=== PATIENT | female | born 1990 | race Two or more races ===

== ENCOUNTER 2016-11-25 06:09 | Observation (INO) | payer BC ==
[2016-11-19 14:58] LABS: HEMATOCRIT 41.6 % (36.0-48.0); HEMOGLOBIN 14.1 g/dL (12.0-16.0)
--- NOTE | ~2016-11-25 | OP ---
Record Of Operation [facility] [address] [place]. [address] NAME: MARGARITA AMTT : 89 STATUS : ADM Leoncio PAT#: [id number] AGE: 26 ADM/REG DATE : 11/25/16 MR#: [id number] REPORT SERV DATE: 11/25/16 DICTATED BY: MARIBEL MILLARD DATE: 11/25/16 REPORT STATUS : Draft TRANSCRIBED BY: MODL DATE: 11/25/16 DATE OF PROCEDURE: 11/25/2016 This was performed at [facility]. INDIGO MIXER: Nichelle Connolly. 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 She was referred by her lean six sigma black belt. Patient was evaluated clinically and radiographically and was noted to have a vertical maxillary excess and mandibular hypoplasia as well as bilateral inferior turbinate hypertrophy. It was determined that the patient would benefit from a maxillary [place] I impaction advancement with bilateral inferior turbinectomies and a bilateral sagittal split osteotomy advancement to be performed under general endotracheal tube anesthesia. The risks and benefits of the procedure were discussed with the patient. The risks included, but were not limited to, bleeding, infection, paresthesias, the possibility of future surgery. The patient expressed an understanding and wished to proceed with the planned procedure. PREOPERATIVE DIAGNOSES: Vertical maxillary excess, mandibular hypoplasia, and bilateral inferior turbinate hypertrophy. TEST PERFORMED: After adequate informed consent, the patient was taken to the main operating room and placed in a semi-Ricardo position on the operating room table. After an uneventful induction of general nasoendotracheal tube anesthesia, the patient was prepped and draped in the standard sterile fashion for oral and maxillofacial surgical procedure. Local anesthetic consisting of 2% lidocaine with 1:100,000 epinephrine was injected in a series of infiltration and blocks in the bilateral maxillary and mandibular regions for a total of 15 mL. Attention was directed to the maxilla where a circumvestibular incision was placed from the left maxillary buttress to the right maxillary buttress. Using Bovie electrocautery, a full-thickness mucoperiosteal flap was elevated on the anterior border of the maxilla was carried to the left maxillary buttress. A subperiosteal dissection was carried out laterally using a periosteal elevator where a subperiosteal pocket was created and a toe-out Obwegeser retractor was placed into that site. Dissection of the right posterior maxillary or posterior to the maxillary buttress was carried out in a similar fashion on the right side. Attention was directed to the piriform rims, where the nasal mucosa was dissected from the nasal floor using a periosteal elevator followed by the placement of a Sayer elevator. After completion of the dissection, a vertical osteotomy was placed in the left maxillary region using a sagittal reciprocating saw. The horizontal osteotomy was completed from the left buttress to the piriform rim. A parallel second osteotomy was placed approximately 4 mm superior to the previous osteotomy. Attention was then directed to the right side of the maxilla, where osteotomies were placed in a similar fashion. A double safe-sided osteotome was used to separate the nasal septum from the nasal floor. A single safe-sided osteotome was then used to place osteotomies at the lateral nasal zambrano. The pterygoid plates bilaterally were then addressed using a pterygoid plate chisel to complete the osteotomy. This was followed by the down fracture of the maxilla. Bony interferences Record Of Operation [facility] [address] [place]. [address] NAME: MARGARITA MATT : 89 STATUS : ADM Leoncio PAT#: [id number] AGE: 26 ADM/REG DATE : 11/25/16 MR#: [id number] REPORT SERV DATE: 11/25/16 DICTATED BY: MARIBEL MILLARD DATE: 11/25/16 REPORT STATUS : Draft TRANSCRIBED BY: TAURUS DATE: 11/25/16 were removed using rongeurs and a rotating surgical handpiece with a bone kiko and copious saline irrigation. Attention was directed to the descending palatine vessel on the left side, which was isolated and was noted to be free of interference. The right descending palatine was located and noted to have mild oozing, so a ligature clip was placed in the descending palatine vessel on the right side and was using Bovie electrocautery. The bilateral nasal rims were reduced using a surgical handpiece with a bone kiko and copious irrigation to increase the opening. Attention was directed to the bilateral inferior turbinates, which were exposed during the down fracture. A Bovie electrocautery pen style was used to cauterize the inferior turbinates and the turbinates were then repositioned superiorly following cauterization. Nasal mucosa was then reapproximated using 3-0 Vicryl suture in an interrupted fashion. The patient was then placed into maxillomandibular fixation using an oral surgical splint that was fabricated preoperatively. The maxilla was then reduced and secured using four 2.0 4-hole KLS Praveen plates and 5 mm screws, and the patient was released from maxillomandibular fixation. The maxilla was noted to be in a good position and stable. Attention was then directed to the left mandibular region, where a Bovie electrocautery was used to make an incision in the left vestibule along the anterior border of the ramus carried anteriorly and laterally along the external oblique ridge. A full-thickness mucoperiosteal flap was elevated. Dissection on the lateral surface of the mandible was completed using a periosteal elevator down to the inferior border, where a heavy body retractor was placed. Attention was directed to the anterior border of the ramus, where a notched Obwegeser was used to reveal the temporalis tendons attached to the coronoid process, which were released on the medial side. Further dissection was carried on the medial side of the ramus using a periosteal elevator in a subperiosteal plane. A medial border retractor was then placed in the site. This time a sagittal reciprocating saw was used to make a horizontal osteotomy, which was carried anteriorly and in a sagittal fashion along the external oblique ridge anteriorly to near the second molar. A vertical osteotomy was then placed using the same sagittal saw, and copious irrigation to join the osteotomy. Using a series of chisels and Cruz spreaders, the osteotomy was completed. The inferior alveolar nerve was noted to be in the distal segment and intact, and there were no complications with the sagittal split. A strung-out wet Ray- Collin was placed into the site. Attention was directed to the right mandibular region, where incision, dissection, and osteotomy was completed in a similar fashion to the left side. Of note, the inferior alveolar nerve of the right side was noted to be , although the inferior alveolar nerve ends were well approximated and inside the inferior alveolar canal. At this time, the patient was placed in a maxillomandibular fixation using fine oral surgical splint that was fabricated preoperatively using elastic ligatures. The left mandibular region was then reduced and using a Citlaly clamp and was fixated using a 4-hole KLS Praveen Kathe plate. Attention was then directed to the right mandibular region, where the osteotomy was reduced and fixated in a similar fashion to the left side. The patient was released from maxillomandibular fixation. Occlusion was noted to be stable and class 1. The surgical sites were copiously irrigated using normal saline. Attention was directed to the maxillary region, where an alar cinch suture was placed using a 3-0 Vicryl suture. The maxilla was then closed in a V-Y fashion using 3-0 chromic gut suture in a running fashion. The bilateral mandibular incisions were then closed using 3-0 chromic gut suture in a running fashion. Prior to closure of the wounds, the sponge, needle, and instrument counts were noted to be correct. A throat pack that was placed at the beginning of the case was removed. The posterior pharynx was suctioned and the patient was then placed into elastic Record Of [address] [address] NAME: MARGARITA MATT : 89 STATUS : ADM Leoncio PAT#: [id number] AGE: 26 ADM/REG DATE : 11/25/16 MR#: [id number] REPORT SERV DATE: 11/25/16 DICTATED BY: MARIBEL MILLARD DATE: 11/25/16 REPORT STATUS : Draft TRANSCRIBED BY: TAURUS DATE: 11/25/16 [facility]. Patient was then turned over to Anesthesia, where she was awakened from anesthesia without complications and transferred to the PACU awake and in good condition. ANIVAL/TAURUS Maribel Millard D.D.S., M.D. / [id number] CC: Maribel Millard D.D.S., M.D.
[~2016-11-25 06:09] MED LIST: *DENIES
[2016-11-26] MEDS ORDERED: AUGMENTIN PO (09:23)
[2016-11-26] MEDS ORDERED: HYCET 7.5 MG-3473 ML PO (09:24)
[2016-11-26] MEDS ORDERED: PHENERGAN PO (09:24)
== END 2016-11-26 11:47 | disposition home or self-care (01) ==
LOC: SDC/OF 06:09 → PACU 11:43 → 5SO 14:43
PROVIDERS: Dentist Oral and Maxillofacial Surgery
PROC: 0NSS04Z (ICD-10-PCS; principal; 2016-11-25 07:45)
PROC: 0NSR04Z Reposition Maxilla with Internal Fixation Device, Open Approach (ICD-10-PCS; 2016-11-25 07:45)
DX: M26.04 Mandibular hypoplasia (principal); J34.3 Hypertrophy of nasal turbinates; Z98.890 Other specified postprocedural states
CPT/HCPCS: 84703; 85014; 85018; 96374; 96375; 96376; A9270-GY; C1713; G0378; J0295; J1170; J2250; J2270; J2405; J2550; J2710; J3010